=== PATIENT | female | born 1970 | race African-American/Black ===

== ENCOUNTER 2025-02-19 17:20 | Emergency (ER) | payer BC, SELFPAY ==
--- NOTE | 2025-02-19 17:24 | ED_ITS ---
HPI - Neck Pain/Injury General Chief Complaint: Skin/Abscess/Foreign Body Stated Complaint: Neck Pain Time Seen by Provider: 02/19/25 17:23 Source: patient Mode of arrival: ambulatory Limitations: no limitations History of Present Illness HPI Narrative: Senait is a 55-year-old female patient presenting to the clinic today with complaints of itchy/irritating neck rash for the past few days. She reports no environmental changes, soaps, lotions, detergents, foods, or medications. She denies any pain to the rash. Is concerned for shingles. Denies any known insect bites. No one else at home has this rash. Review of Systems Review of Systems: Pertinent positives per HPI. Patient denies any fever, chills, rash, headache, visual changes, dizziness, cough, runny nose, sore throat, shortness of breath, chest pain, palpitations, nausea, vomiting, diarrhea, constipation, abdominal pain, or any urinary issues. PMFSH Comments At the time of my signature, I reviewed and agree with the nursing past medical, surgical, social, and family history. There is no relevant family history pertinent to the patient complaint. Exam Narrative: General: Well-developed, well nourished, in no apparent distress Head: Normocephalic, atraumatic. Cardio: Regular rate and rhythm, s1 and s2 normal, no murmur appreciated. Resp: Clear to auscultation bilaterally, no rhonchi, rales, wheezing or rubs. Integumentary: [place], warm, and dry, mildly red, raised, pustular lesions/rash to the right side of the neck-consistent with acne Course Course Emergency Course: Portions of this record may have been created with voice recognition software. Level of Care: Express Care Visit Vital Signs Vital signs: Vital Signs Temperature 36.6 C 02/19/25 17: Pulse Rate 81 02/19/25 17: Respiratory Rate 14 02/19/25 17:29 Blood Pressure 123/79 02/19/25 17: Pulse Oximetry 100 02/19/25 17:29 Oxygen Delivery Room Air 02/19/25 17: Temperature 36.6 C 02/19/25 17:29 Pulse Rate 81 02/19/25 17:29 Respiratory Rate 14 02/19/25 17:29 Blood Pressure 123/79 02/19/25 17:29 Pulse Oximetry 100 02/19/25 17:29 Oxygen Delivery Room Air 02/19/25 17:29 Vital signs reviewed MDM - Neck Pain/Injury MDM Narrative Medical decision making narrative: At the time of visit patient is resting comfortably on the exam table. Patient appears to be nontoxic. Complaints of itchy/irritating neck rash for the past few days. She reports no environmental changes, soaps, lotions, detergents, foods, or medications. She denies any pain to the rash. Is concerned for shingles. Denies any known insect bites. No one else at home has this rash. Patient reports she has had acne in many years. On exam patient has a pustular non indurated, irritated, mildly itchy rash. Plan: I suspect patient has a pustular rash/acne to the right side of her neck. Will send in prescription for mupirocin cream and explained to her to use benzyl peroxide. Supportive measures were discussed with the patient and they voiced understanding discharge instructions and agrees to treatment plan. Return precautions reviewed Differential Diagnosis Differential diagnosis: Likely disc disorder of cervical region, whiplash injury to neck, closed subluxation of cervical spine, fracture of cervical spine without lesion of spinal cord, cervical radiculopathy, vertebral artery dissection, torticollis, cervical spondylosis and strain of neck muscle Discharge Plan Discharge Clinical Impression: Pustular rash Patient Disposition: Home Condition: Stable Instructions: Antibiotic Form Additional Instructions: Keep area clean and dry Apply mupirocin cream to the affected area twice daily as directed May wash area with benzyl peroxide daily. Follow-up with your PCP in 1 week if symptoms persist or sooner if they worsen Patient Language: Citizen Of [place] Prescriptions: New mupirocin [Centany] 2 % ointment 1 applic topical BID 7 Days Qty: 22 0RF Follow-up/Referrals: UNKNOWN,DOCTOR [Primary Care Provider] - Time of Disposition: 17:33 Quality NIHSS Nursing Documentation ED NIHSS nursing documentation: reviewed/agree
[2025-02-19 17:29] VITALS: BP 123/79; PULSE 81; RESP 14; TEMP 36.6; O2SAT 100
== END 2025-02-19 17:36 | disposition home or self-care (01) ==
PROVIDERS: Emergency Provider Nurse Practitioner Family
DX: L08.0 Pyoderma (principal)
CPT/HCPCS: 99213; G0463